=== PATIENT | male | born 1990 | race Caucasian/White ===

== ENCOUNTER 2016-07-29 16:54 | Emergency (ER) | payer BC ==
[~2016-07-29] VITALS: Ht 180.3 cm; Wt 72.6 kg
[2016-07-29 16:56] VITALS: BP_SYST 124
--- NOTE | 2016-07-29 17:09 | NUR ---
Patient to ER bed 5 to gown for evaluation. Side rails up. Report given to Merna GATES.
--- NOTE | 2016-07-29 17:10 | NUR ---
Mother verbalizes that the patient has been hyperverbal for some time and has recently started to say unintelligible things about killing. Patient is hyperverbal, with flight of ideas and a slightly disorganized thought process. Patient specifically denies suicidal, homicidal ideation and auditory hallucinations. Hoever the patient is so disorganized that his self report does not seem to be reliable.
--- NOTE | 2016-07-29 17:14 | NUR ---
Note deirdredieter in ED - 07/29/16 at 1741 by RABIA Patient placed on suicide precautions. Patient placed in room within close proximity to nurses' station for closer observation and monitoring. All clothing removed, placed in hospital gown. Metal detector wand used to further screen patient of any potential hazardous belongings. All belongings inventoried, placed in bags and removed from room. Cabinets locked. BP and pulse oximeter cords, and property assessment monitor leads removed.
--- NOTE | 2016-07-29 17:14 | NUR ---
Patient brought to ER by mother. Mother states that patient has psychiatric history, about 1 year ago he was hospitalized, per mom since then patient is agitated and has verbal and auditory hallucinations. Mother states that in the last couple days patient became increasingly more agitated. Patient states that he has history of heroine and TCH abuse. Patient is AAOx4, unlabored breathnig, speaking fast, coherent, denies SI, denies pain, denies N/V, no signs of trauma.
--- NOTE | 2016-07-29 17:15 | NUR ---
ER MD Kaur at bedside for evaluation
--- NOTE | 2016-07-29 17:18 | NUR ---
Recreation Establishment Manager at bedside for blood draw. Patient identified x2
[2016-07-29 17:30] LABS: BASOPHILS % (AUTO) 0.4 % (0.0-2.0); EOSINOPHILS # (AUTO) 0.2 K/uL (0.0-0.4); EOSINOPHILS % (AUTO) 1.6 % (0.0-4.0); HEMATOCRIT 49.8 % (36-54); LYMPHOCYTES # (AUTO) 2.2 K/uL (1.0-5.5); LYMPHOCYTES % (AUTO) 23.3 % (20.5-51.5); MEAN CORPUSCULAR HEMOGLOBIN 30 pg (27-31); MEAN CORPUSCULAR HGB CONC 34 % (32-36); MEAN CORPUSCULAR VOLUME 89 fL (79.0-98.0); MONOCYTES # (AUTO) 0.5 K/uL (0.0-1.0); MONOCYTES % (AUTO) 5.1 % (1.7-9.3); NEUTROPHILS # (AUTO) 6.5 K/uL (1.8-7.7); NEUTROPHILS % (AUTO) 69.6 % (40.0-70.0); PLATELET COUNT (AUTO) 194 K/uL (130-430); RED BLOOD CELL COUNT(AUTO) 5.62 MIL/uL (4.2-6.2); WHITE BLOOD COUNT (AUTO) 9.4 K/uL (4.8-10.8)
[2016-07-29 17:34] LABS: BILIRUBIN,URINE NEGATIVE (NEGATIVE); BLOOD, URINE NEGATIVE (NEGATIVE); CLARITY/URINE CLEAR (CLEAR); COLOR,URINE YELLOW (YELLOW); GLUCOSE,URINE NEGATIVE (NEGATIVE); KETONES,URINE NEGATIVE (NEGATIVE); LEUKOCYTE ESTERASE ,URINE NEGATIVE (NEGATIVE); NITRITE, URINE NEGATIVE (NEGATIVE); PH,URINE 6.5 (5.0-8.0); PROTEIN URINE NEGATIVE (NEGATIVE); UROBILINOGEN,URINE 0.2 (0.2-1.0)
[2016-07-29 17:34] LABS: CALCIUM 8.3 mg/dL (8.4-11.0); CREATININE 1.2 mg/dL (0.55-1.30); POTASSIUM 3.5 mmol/L (3.5-5.1)
[2016-07-29 17:38] LABS: ALBUMIN 3.9 g/dL (3.4-4.8); TOTAL BILIRUBIN 0.5 mg/dL (0.0-1.0); TOTAL PROTEIN, SERUM 7.5 g/dL (6.4-8.3)
--- NOTE | 2016-07-29 17:38 | NUR ---
Note nadeem in EDM - 07/29/16 at 1739 by INES Patient eloped stating he has places to be, which he refused to elaborate on. Patient refused to stay for lab results. ID band removed. Patient left with mother to home.
--- NOTE | 2016-07-29 17:40 | NUR ---
Note nadeem in EDM - 07/29/16 at 1742 by INES Patient eloped stating he has places to be, which he refused to elaborate on. Patient refused to stay for lab results. ID band removed. Patient left with mother to home.
--- NOTE | 2016-07-29 17:43 | NUR ---
Patient eloped stating he has places to be, which he refused to elaborate on. Patient refused to stay for lab results. ID band removed. Patient left with mother to home.
[2016-07-29 17:46] LABS: BARBITURATE, URINE NEGATIVE (NEG <=200); BENZODIAZEPINE, URINE NEGATIVE (NEG <=150); CANNABINOID, URINE POSITIVE (NEG <=50); COCAINE, URINE NEGATIVE (NEG <=150); METHAMPHETAMINES SCREEN,URINE NEGATIVE (NEG <=500); OPIATE, URINE NEGATIVE (NEG <=100); PHENCYCLIDINE SCREEN,URINE NEGATIVE (NEG <=25); UR TRICYCLIC ANTIDEPRESSANTS NEGATIVE (NEG <=300); URINE AMPHETAMINE NEGATIVE (NEG <=500); URINE METHADONE NEGATIVE (NEG <=200); URINE OXYCODONE SCREEN NEGATIVE (NEG <=100); URINE PROPOXYPHENE SCREEN NEGATIVE (NEG <=300)
[2016-07-29] MEDS ORDERED: KETAMINE HCL 500 MG/10 ML VIAL ONE (18:14)
== END 2016-07-29 17:43 | disposition left against medical advice (07) ==
LOC: SED 16:54
DX: Z00.8 Encounter for other general examination (principal); T40.7X5A Adverse effect of cannabis (derivatives), initial encounter; Z53.20 Procedure and treatment not carried out because of patient's decision for unspecified reasons; Y92.89 Other specified places as the place of occurrence of the external cause
CPT/HCPCS: 36415; 80053; 80307; 81003; 85025; 99284; G0480; G0481; G0482; 99285